=== PATIENT | male | born 1980 ===

== ENCOUNTER 2019-03-26 02:43 | Emergency (ER) | payer SELFPAY ==
[~2019-03-26] VITALS: Ht 177.8 cm; Wt 95.3 kg
--- NOTE | 2019-03-26 04:15 | NUR ---
KASIELSimona FROM HOME WITH PARTNER. TO ER BED 10. AAOX4. NO RESP DISTRESS. AMBULATORY. C/O BACK PAIN. PT REPORTS THAT HIS PAIN IS IN THE MID BACK, 10/10, SHARP AND RADIATING ACROSS D BACK LIKE A BELT. PT DENIES TRAUMA OR INJURY TO BACK, HOWEVER STATES THAT HE PLAYS BASKETABLL.. NO MEDICATION FOR BACK PAIN SINCE IT STARTED. PT ALSO REPORTS FREQUENT URINATION AND OCCASIONAL HEADACHE. AT BEDS. AT BEDSIDE FOR BAM
[2019-03-26] MEDS ORDERED: CARISOPRODOL 350 MG TABLET PO ONE (04:30)
[2019-03-26] MEDS ORDERED: IBUPROFEN 400 MG TABLET PO ONE (04:30)
[2019-03-26] MEDS ORDERED: CARISOPRODOL 350 MG TABLET ONE (04:33)
[2019-03-26] MEDS ORDERED: IBUPROFEN 400 MG TABLET ONE (04:34)
[2019-03-26 04:38] LABS: BILIRUBIN,URINE Negative (NEGATIVE); BLOOD, URINE Trace-intact Ery/uL (NEGATIVE); COLOR,URINE Yellow (YELLOW); KETONES,URINE Negative (NEGATIVE); LEUKOCYTE ESTERASE ,URINE Trace (NEGATIVE); NITRITE, URINE Negative (NEGATIVE); PROTEIN,URINE Negative (NEGATIVE); UGLUCOSE Negative (NEGATIVE)
[2019-03-26 04:39] LABS: APPEARANCE,URINE SLIGHTLY CLOUDY (CLEAR)
[2019-03-26 05:10] LABS: BACTERIA,URINE None seen /HPF (None Seen); CALCIUM OXALATE CRYSTALS,UR Few /HPF (None Seen); SQUAMOUS EPITHELIAL CELL,UR Few /HPF (None Seen); URINE AMORPHOUS PHOSPHATES Moderate /HPF (None Seen)
--- NOTE | 2019-03-26 05:28 | NUR ---
Patient discharged to home in stable condition. Written and verbal after care instructions given. Patient verbalizes understanding of instruction. Pt ambulatory with a steady gait
[2019-03-26 05:33] VITALS: BP 131/86
== END 2019-03-26 05:34 | disposition home or self-care (01) ==
LOC: ER 02:48
DX: S39.012A Strain of muscle, fascia and tendon of lower back, initial encounter (principal); R35.0 Frequency of micturition; I10 Essential (primary) hypertension; X58.XXXA Exposure to other specified factors, initial encounter; Y93.B9 Activity, other involving muscle strengthening exercises; Y92.89 Other specified places as the place of occurrence of the external cause; Y99.8 Other external cause status
CPT/HCPCS: 81000-TC